=== PATIENT | female | born 1950 | race Asian ===

== ENCOUNTER 2024-07-30 22:42 | Emergency (ER) | payer SELFPAY ==
[~2024-07-30] VITALS: Ht 162.6 cm; Wt 58.0 kg
[2024-07-30 22:52] VITALS: O2SAT 100
[2024-07-31] MEDS: ACETAMINOPHEN 325MG TABLET PO ONE
[2024-07-31] MEDS ORDERED: IBUP-2028 MT (01:29)
[2024-07-31] MEDS ORDERED: HYDR-4001 MT (01:29)
[2024-07-31 02:30] VITALS: BP 119/87; PULSE 65; RESP 18; TEMP 36.83628; O2SAT 99
== END 2024-07-31 02:35 | disposition home or self-care (01) ==
LOC: ER 22:42
DX: S02.40CA Maxillary fracture, right side, initial encounter for closed fracture (principal); S02.40EA Zygomatic fracture, right side, initial encounter for closed fracture; S02.31XA Fracture of orbital floor, right side, initial encounter for closed fracture; S42.201A Unspecified fracture of upper end of right humerus, initial encounter for closed fracture; W01.0XXA Fall on same level from slipping, tripping and stumbling without subsequent striking against object, initial encounter; M79.621 Pain in right upper arm; M25.561 Pain in right knee; R51.9 Headache, unspecified; R04.0 Epistaxis; Y93.89 Activity, other specified; Y92.89 Other specified places as the place of occurrence of the external cause; Y99.8 Other external cause status
CPT/HCPCS: 70486; 73030; 73060; 73560; 99284